=== PATIENT | female | born 1990 ===

== ENCOUNTER → 2024-10-24 | Outpatient (CLI) | payer BC ==
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
== END | disposition home or self-care (01) ==
LOC: RADMRIMAIN 12:53
PROVIDERS: ATTEND Family Medicine
DX: M25.461 Effusion, right knee (principal)